=== PATIENT | female | born 1995 | race Caucasian/White ===

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

== ENCOUNTER 2017-02-09 10:19 | Emergency (ER) | payer OTHER ==
[2017-02-09 10:31] VITALS: BP 111/64
--- NOTE | 2017-02-09 10:56 | UC ---
Lower Extremity/Ankle HPI - HPI Summary HPI Summary: TWO WEEKS OF RIGHT GREAT TOE SWELLING, PAIN AND DRAINAGE AROUND NAIL. NO TRAUMA. NO PREVOUS HISTORY OF SAME. NO FEVER. - History of Current Complaint Chief Complaint: UCWounds Stated Complaint: SWOLLEN PAINFUL TOE Time Seen by Provider: 02/09/17 10:25 Hx Obtained From: Patient Hx Last Menstrual Period: 02/05/17 Onset/Duration: Gradual Onset, Lasting Weeks, Still Present Severity Initially: Moderate Severity Currently: Moderate Able to Bear Weight: Yes - Risk Factors Gout Risk Factors: Negative DVT Risk Factors: Negative Septic Arthritis Risk Factor: Negative - Allergies/Home Medications Allergies/Adverse Reactions: Allergies Allergy/AdvReac Type Severity Reaction Status Date / Time tree nuts Allergy Anaphylatic Uncoded 04/18/16 09:22 Shock PMH/Surg Hx/FS Hx/Imm Hx Previously Healthy: Yes Other History Of: Negative For: HIV, Hepatitis B, Hepatitis C, Anticoagulant Therapy - Surgical History Surgical History: None - Family History Known Family History: Positive: Cardiac Disease, Hypertension, Diabetes - Social History Occupation: Employed Part-time, Student Lives: Dormitory/Roommates Alcohol Use: Rare Substance Use Type: Marijuana Substance Use Comment - Amount & Last Used: once a month Smoking Status (MU): Never Smoked Tobacco - Immunization History Vaccination Up to Date: Yes Review of Systems Constitutional: Negative Skin: Other - RIGHT GREAT TOE DRAINAGE REDNESS TENDERNES Eyes: Negative ENT: Negative Respiratory: Negative Cardiovascular: Negative Gastrointestinal: Negative Genitourinary: Negative Motor: Negative Neurovascular: Negative Musculoskeletal: Negative Neurological: Negative Psychological: Negative Is Patient Immunocompromised?: No All Other Systems Reviewed And Are Negative: Yes Physical Exam Triage Information Reviewed: Yes Appearance: Well-Appearing, Pain Distress - MILD Vital Signs: Initial Vital Signs Temp 97.8 F 02/09/17 10:27 Pulse 78 02/09/17 10:27 Resp 16 02/09/17 10:27 BP 111/64 02/09/17 10:27 Pulse Ox 100 02/09/17 10:27 Eye Exam: Normal ENT Exam: Normal ENT: Positive: Normal ENT inspection, TMs normal Dental Exam: Normal Neck exam: Normal Neck: Positive: Supple, Nontender, No Lymphadenopathy. Negative: Enlarged Nodes @ Respiratory Exam: Normal Respiratory: Positive: Chest non-tender, Lungs clear, Normal breath sounds, No respiratory distress Cardiovascular Exam: Normal Cardiovascular: Positive: RRR, No Murmur, Pulses Normal Abdominal Exam: Normal Musculoskeletal Exam: Normal Musculoskeletal: Positive: Strength Intact, ROM Intact, No Edema Neurological Exam: Normal Psychological Exam: Normal Skin: Positive: Other - LATERAL ASPECT OF NAIL MARGIN OF RIGHT GREAT TOE, ERYTHEMA, TENDERNESS. WOUND CULTURE OBTAINED FROM AREA, HOWEVER DESPITE ATTEMPTS , WITHOUT ANY GROSS EXPRESSION OF PURULENT DISCHARGE Lower Extremity Course/Dx - Differential Dx/Diagnosis Differential Diagnosis/HQI/PQRI: Infection, Sprain, Strain Provider Diagnoses: INGROWN NAIL, RIGHT GREAT TOE Discharge - Discharge Plan Condition: Stable Disposition: HOME Prescriptions: Amoxicillin/Clavulanate TAB* [Augmentin TAB 875*] 875 mg PO BID #20 tab Patient Education Materials: Ingrown Nail (ED) Ref[place]: [facility] [place] Dewey LAWSON,Eitan Poole [Physician [employer] Inspector] - Gilberto Diaz DPM [Doctor of Podiatric Medicine] - If Needed No Primary Care Phys,NOPCP [Primary Care Provider] - Images Feet (Multiple View): 1 - ERRYTHEMA AND TENDERNESS HERE
== END 2017-02-09 11:00 | disposition home or self-care (01) ==
LOC: UCEAST 10:19
DX: L60.0 Ingrowing nail (principal)
CPT/HCPCS: 87070; 87077; 87186; 87205; 87640; 87641; 99212; G0463

== ENCOUNTER 2017-11-28 17:28 | Emergency (ER) | payer OTHER ==
[2017-11-28 17:47] VITALS: BP 116/59
--- NOTE | 2017-11-28 18:00 | UC ---
Complaint Female HPI - HPI Summary HPI Summary: uti for about 4-5 days, describes as burning with urination. hx of same. no vaginal d/c or concern for std - History Of Current Complaint Chief Complaint: UCGU Stated Complaint: URINARY Time Seen by Provider: 11/28/17 17:33 Hx Obtained From: Patient Hx Last Menstrual Period: 11/08/17 Onset/Duration: Gradual Onset Timing: Constant Pain Intensity: 5 Aggravating Factor(s): Nothing Alleviating Factor(s): Nothing Associated Signs And Symptoms: Negative: Fever, Back Pain, Vaginal Bleeding/ Discharge, Vaginal Discharge - Allergies/Home Medications Allergies/Adverse Reactions: Allergies Allergy/AdvReac Type Severity Reaction Status Date / Time tree nuts Allergy Anaphylatic Uncoded 11/28/17 17:47 Shock Home Medications: Home Medications Spironolactone TAB* [Aldactone TAB*] 1 mg PO DAILY 11/28/17 [History Confirmed 11/28/17] PMH/Surg Hx/FS Hx/Imm Hx - Additional Past Medical History Additional PMH: PCOS, UTI Other History Of: Negative For: HIV, Hepatitis B, Hepatitis C, Anticoagulant Therapy - Surgical History Surgical History: None - Family History Known Family History: Positive: Cardiac Disease, Hypertension, Diabetes - Social History Lives: With Family Alcohol Use: Occasionally Substance Use Type: None Substance Use Comment - Amount & Last Used: once a month Smoking Status (MU): Never Smoked Tobacco - Immunization History Vaccination Up to Date: Yes Review of Systems Constitutional: Negative Skin: Negative Eyes: Negative ENT: Negative Respiratory: Negative Cardiovascular: Negative Gastrointestinal: Negative Genitourinary: Dysuria Motor: Negative Neurovascular: Negative Musculoskeletal: Negative Neurological: Negative Psychological: Negative Is Patient Immunocompromised?: No All Other Systems Reviewed And Are Negative: Yes Physical Exam Triage Information Reviewed: Yes Appearance: Well-Appearing Vital Signs: Initial Vital Signs Temp 99.6 F 11/28/17 17:38 Pulse 84 11/28/17 17:38 Resp 20 11/28/17 17:38 BP 116/59 11/28/17 17:38 Pulse Ox 99 11/28/17 17:38 Vital Signs Reviewed: Yes Eyes: Positive: Conjunctiva Clear ENT: Positive: Normal ENT inspection Neck: Positive: Supple, Nontender, No Lymphadenopathy Respiratory: Positive: Lungs clear, Normal breath sounds Cardiovascular: Positive: RRR, No Murmur Abdomen Description: Positive: Nontender, No Organomegaly, Soft. Negative: CVA Tenderness (R), CVA Tenderness (L), Distended, Guarding Bowel Sounds: Positive: Present Musculoskeletal: Positive: ROM Intact Neurological: Positive: Alert Psychological: Positive: Age Appropriate Behavior Skin Exam: Normal Diagnostics - Laboratory Diagnostic Studies Completed/Ordered: u/a leukocytes, blood with culture pending Complaint Female Dx - Differential Dx/Diagnosis Provider Diagnoses: UTI Discharge - Sign-Out/Discharge Documenting (check all that apply): Patient Departure - Discharge Plan Condition: Stable Disposition: HOME Prescriptions: Nitrofurantoin Monohyd/M-Cryst [Macrobid 100 mg Capsule] 100 mg PO BID #10 cap Patient Education Materials: Urinary Tract Infection in Women (ED) Referrals: Eitan Willis [Primary Care Provider] - 7 Days - Billing Disposition and Condition Condition: STABLE Disposition: Home
[2017-11-28] MEDS ORDERED: Nitrofurantoin Macrocrystals* 50 MG CAP PO ONE (18:13)
== END 2017-11-28 18:18 | disposition home or self-care (01) ==
LOC: UCCORT 17:28
DX: N39.0 Urinary tract infection, site not specified (principal); Z91.018 Allergy to other foods
CPT/HCPCS: 81003; 87077; 87086; 87186; 99212; A9270-GY; G0463